=== PATIENT | female | born 1950 | race African-American/Black ===

== ENCOUNTER → 2020-09-05 | Outpatient (CLI) | payer MEDICARE ==
--- NOTE | 2020-09-05 17:00 | CARD ---
MR#: [id number] Date of Study: 09/05/2020 Ordering Physician: KIRK ANTONY, Referring Physician: KIRK ANTONY, Tech: Mahnaz Gaylecliffordpina, [facility] APPROVED REPORT EXAM: Two-dimensional and M-mode echocardiogram with Doppler and color Doppler. Other Information Quality : AverageHR: 78bpm Technically limited study due to body habitus. INDICATION Murmur RISK FACTORS Hypertension 2D DIMENSIONS RVDd3.6 (2.9-3.5cm)Left Atrium(2D)3.3 (1.6-4.0cm) IVSd0.9 (0.7-1.1cm)Aortic Root(2D)2.8 (2.0-3.7cm) LVDd4.2 (3.9-5.9cm)LVOT Diameter2.0 (1.8-2.4cm) PWd0.8 (0.7-1.1cm)LVDs2.3 (2.5-4.0cm) FS (%) 45.8 %SV61.3 ml LVEF(%)77.5 (>50%) Aortic Valve AoV Peak Abraham.262.6cm/sAoV VTI52.9cm AO Peak GR.27.6mmHgLVOT VTI 30.06cm AO Mean GR.15mmHgAI P 1/2 [id number] Mitral Valve MV E Ezqxoosl29.9cm/sMV DECEL [id number] MV A Uzaplsgz74.2cm/sE/A Ratio0.9 TDI Lateral E' P. V7.59cm/sMedial E' P. V9.98cm/s E/Lateral E'9.3E/Medial E'7.1 Tricuspid Valve TR P. Omxqkoup759hu/sRAP PTAYXVIM1ugJq TR Peak Gr.60drIdOLMZ08wvSt Pulmonary Vein S1 Llshmogs56.8cm/sS2 Mwqvfkou37.69cm/s D2 Uhfwgckl48.7cm/s LEFT VENTRICLE The left ventricle is normal size. There is normal left ventricular wall thickness. The left ventricu lar systolic function is normal and the ejection fraction is within normal range. The Ejection Fracti on is 60-65%. There is normal LV segmental wall motion. Tissue Doppler imaging reveals mild left vent ricular diastolic dysfunction. RIGHT VENTRICLE The right ventricle is mildly dilated. The right ventricle is mildly hypertrophied. The right ventric ular systolic function is normal. ATRIA The left atrium size is normal. The right atrium size is normal. The interatrial septum is intact wit h no evidence for an atrial septal defect or patent foramen ovale as noted on 2-D or Doppler imaging. AORTIC VALVE The aortic valve is calcified with restricted leaflet motion. Doppler and Color Flow revealed trace a ortic regurgitation. There is no significant aortic valvular stenosis. Calculated aortic valve area i s 1.86 cm2 with maximum pressure gradient of 31 mmHg and mean pressure gradient of 18 mmHg. MITRAL VALVE The mitral valve is normal in structure and function. There is no evidence of mitral valve prolapse. There is no mitral valve stenosis. Doppler and Color-flow revealed trace mitral regurgitation. TRICUSPID VALVE The tricuspid valve is normal in structure and function. Doppler and Color Flow revealed trace tricus pid regurgitation with an estimated PAP of 41 mmHg. There is no tricuspid valve stenosis. PULMONIC VALVE The pulmonic valve is not well visualized. Doppler and Color Flow revealed no pulmonic valvular regur gitation. There is no pulmonic valvular stenosis. GREAT VESSELS The aortic root is normal in size. The IVC is normal in size and collapses >50% with inspiration. PERICARDIAL EFFUSION There is no evidence of significant pericardial effusion. Critical Notification Critical Value: No <Conclusion> The left ventricular systolic function is normal and the ejection fraction is within normal range. Th e Ejection Fraction is 60-65%. There is normal LV segmental wall motion. There is no significant aortic valvular stenosis. Calculated aortic valve area is 1.86 cm2 with maxim um pressure gradient of 31 mmHg and mean pressure gradient of 18 mmHg. Doppler and Color Flow revealed trace tricuspid regurgitation with an estimated PAP of 41 mmHg. Signed by : Omid Berrios, Electronically Approved : 09/05/2020 17:00:34
== END ==
LOC: ECHO 13:54
PROVIDERS: ATTEND Internal Medicine
DX: I35.1 Nonrheumatic aortic (valve) insufficiency (principal); I10 Essential (primary) hypertension
CPT/HCPCS: 93306

== ENCOUNTER 2020-11-13 14:37 | Emergency (ER) | payer MEDICARE ==
[~2020-11-13] VITALS: Ht 165.1 cm; Wt 75.9 kg
[2020-11-13 16:00] VITALS: BP 138/82
--- NOTE | 2020-11-13 17:39 | RAD ---
EXAMINATION: CT head and cervical spine without IV contrast INDICATION: Pain, numbness to hand COMPARISON: None TECHNIQUE: Spiral acquisition of contiguous images from the skull base to the vertex were obtained. C T of the cervical spine was obtained using contiguous spiral imaging from the skull base to the upper thoracic level. Sagittal and coronal 2D reformatted series were provided by the technologist. Soft t issue and bone window algorithms were reviewed. Exposure: One or more of the following individualized dose reduction techniques were utilized for thi s examination: 1. Automated exposure control 2. Adjustment of the mA and/or kV according to patient size 3. Use of iterative reconstruction technique. FINDINGS: CT HEAD: The ventricles are normal in size. Neither mass, midline shift, intracranial hemorrhage, acute/subacu te ischemic changes, nor extraaxial fluid collections are seen. The brain parenchyma is normal in vivian earance. The paranasal sinuses, mastoid air cells, and middle ears are clear. The orbital contents ap pear within normal limits. CT CERVICAL SPINE: Anatomic alignment of the cervical spine is maintained. Grade 1 anterolisthesis of C7 over T1. Neithe r fracture, subluxation, nor traumatic spondylolisthesis is seen. The vertebral body heights are pres erved. There is no evidence of a large intraspinal hematoma. The prevertebral and paravertebral soft tissues are within normal limits. Visualized lung apices and soft tissue neck are unremarkable. Severe multilevel changes with disc space narrowing, endplate erosion and anterior and posterior oste ophytes. Multilevel lateral facet and uncovertebral arthropathy. No significant canal stenosis. Diffu se disc bulge at C4-5 with severe right neural foraminal narrowing. Severe left and moderate right ne uroforaminal narrowing at C5-6 and C6-7. IMPRESSION: CT HEAD: No evidence of acute intracranial abnormality. CT CERVICAL SPINE: 1. No evidence of fracture or traumatic spondylolisthesis of the cervical spine. 2. Severe multilevel degenerative changes, worst at C4-5, C5-6 and C6-7. Electronically signed by: Yana Valdivia MD (11/13/2020 5:37 PM) [id number]
--- NOTE | 2020-11-13 18:36 | PHYS DOC ---
Past Medical History Past Medical History: Hypertension, Hypothyroid (JERROD MARKS Kim FRIT COATER) Past Surgical History: Other Additional Past Surgical Histo: THYROIDECTOMY (JERROD MARKS Kim FRIT COATER) Smoking Status: Never Smoker Alcohol Use: Occasionally (JERROD MARKS Kim FRIT COATER) General Adult EDM: Chief Complaint: MUSCLE SPASM/CRAMP HPI: HPI: Patient is a 70 year old female with a history of hypertension who presents to the ED today complaining of muscle spasms and tingling to bilateral hands, symptoms began 2 days ago, symptoms are worse while sleeping. Patient states she believes she slept wrong 2 days ago. Patient denies any injuries. She states she has taken hydrocodone from a friend which relieved her symptoms. (JERROD MARKS Kim FRIT COATER) Review of Systems: Review of Systems: Constitutional: Denies fever or chills. [] Eyes: Denies change in visual acuity. [] HENT: Denies nasal congestion or sore throat. [] Respiratory: Denies cough or shortness of breath. [] Cardiovascular: Denies chest pain or edema. [] GI: Denies abdominal pain, nausea, vomiting, bloody stools or diarrhea. [] : Denies dysuria. [] Musculoskeletal: Reports bilateral upper extremity spasms, tingling, slight neck pain Integument: Denies rash. [] Neurologic: Denies headache, focal weakness or sensory changes. [] Psychiatric: Denies depression or anxiety. [] (JUDITHJERROD Lewis FRIT COATER) Heart Score: C/O Chest Pain: N/A Risk Factors: Risk Factors: DM, Current or recent (<one month) smoker, HTN, HLP, family history of CAD, obesity. Risk Scores: Score 0 - 3: 2.5% MACE over next 6 weeks - Discharge Home Score 4 - 6: 20.3% MACE over next 6 weeks - Admit for Clinical Observation Score 7 - 10: 72.7% MACE over next 6 weeks - Early Invasive Strategies (JUDITHJERROD Lewis FRIT COATER) Physical Exam: PE: Constitutional: Well developed, well nourished, no acute distress, non-toxic appearance. [] HENT: Normocephalic, atraumatic, bilateral external ears normal, oropharynx moist, no oral exudates, nose normal. [] Eyes: PERRLA, EOMI, conjunctiva normal, no discharge. [] Neck: Normal range of motion, no tenderness, supple, no stridor. [] Cardiovascular:Heart rate regular rhythm, no murmur [] Lungs & Thorax: Bilateral breath sounds clear to auscultation [] Abdomen: Bowel sounds normal, soft, no tenderness, no masses, no pulsatile masses. [] Skin: Warm, dry, no erythema, no rash. [] Back: No tenderness, no CVA tenderness. [] Extremities: No tenderness, no cyanosis, no clubbing, ROM intact, no edema. [] 5/5 strength to bilateral upper extremities. Neurologic: Alert and oriented X 3, normal motor function, normal sensory function, no focal deficits noted. Cranial nerves II through XII intact Psychologic: Affect normal, judgement normal, mood normal. [] (JERROD MARKS FRIT COATER) Current Patient Data: Vital Signs: Vital Signs Date Time Temp Pulse Resp B/P (MAP) Pulse Ox O2 Delivery O2 Flow Rate FiO2 11/13/20 16:00 98.8 73 16 138/82 (100) 98 Room Air 98.8 (JERROD MARKS FRIT COATER) EKG: EKG: [] (JERROD MARKS FRIT COATER) Radiology/Procedures: Radiology/Procedures: []PROCEDURE: CT HEAD AND CERVICAL SPINE WO EXAMINATION: CT head and cervical spine without IV contrast INDICATION: Pain, numbness to hand COMPARISON: None TECHNIQUE: Spiral acquisition of contiguous images from the skull base to the vertex were obtained. CT of the cervical spine was obtained using contiguous spiral imaging from the skull base to the upper thoracic level. Sagittal and coronal 2D reformatted series were provided by the technologist. Soft tissue and bone window algorithms were reviewed. Exposure: One or more of the following individualized dose reduction techniques were utilized for this examination: 1. Automated exposure control 2. Adjustment of the mA and/or kV according to patient size 3. Use of iterative reconstruction technique. FINDINGS: CT HEAD: The ventricles are normal in size. Neither mass, midline shift, intracranial hemorrhage, acute/subacute ischemic changes, nor extraaxial fluid collections are seen. The brain parenchyma is normal in appearance. The paranasal sinuses, mastoid air cells, and middle ears are clear. The orbital contents appear within normal limits. CT CERVICAL SPINE: Anatomic alignment of the cervical spine is maintained. Grade 1 anterolisthesis of C7 over T1. Neither fracture, subluxation, nor traumatic spondylolisthesis is seen. The vertebral body heights are preserved. There is no evidence of a large intraspinal hematoma. The prevertebral and paravertebral soft tissues are within normal limits. Visualized lung apices and soft tissue neck are unremarkable. Severe multilevel changes with disc space narrowing, endplate erosion and anterior and posterior osteophytes. Multilevel lateral facet and uncovertebral arthropathy. No significant canal stenosis. Diffuse disc bulge at C4-5 with severe right neural foraminal narrowing. Severe left and moderate right neuroforaminal narrowing at C5-6 and C6-7. IMPRESSION: CT HEAD: No evidence of acute intracranial abnormality. CT CERVICAL SPINE: 1. No evidence of fracture or traumatic spondylolisthesis of the cervical spine. 2. Severe multilevel degenerative changes, worst at C4-5, C5-6 and C6-7. Electronically signed by: Shanae Valdivia MD (11/13/2020 5:37 PM) [id number] DICTATED and SIGNED BY: SHANAE VALDIVIA MD DATE: 11/13/20 [id number] 0 Right (JERROD MARKS APRN) Course & Med Decision Making: Course & Med Decision Making Pertinent Labs and Imaging studies reviewed. (See chart for details) This is a 7-year-old female patient presented to the ED today complaining of spasms to her neck and tingling sensation to her fingers. The symptoms began 2 days ago after what she believes was sleeping wrong. CT of the head and cervical spine was negative for any acute findings, noted for DJD. Patient likely has radiculopathy. Provided neurosurgeon for follow-up. She has a PCP. Return precautions provided. (JERROD MARKS APRN) Course & Med Decision Making The chart was reviewed. MLP assessed and treated patient independently I was available for consult.. Agree with the plan of care. (VEE GROVE I DO) Trev Disclaimer: Trev Disclaimer: This electronic medical record was generated, in whole or in part, using a voice recognition dictation system. (JERROD MARKS APRN) Departure Departure Impression: Primary Impression: Muscle spasm Additional Impressions: DJD (degenerative joint disease) of cervical spine Qualified Codes: M47.812 - Spondylosis without myelopathy or radiculopathy, cervical region Cervical radiculopathy Disposition: 01 HOME / SELF CARE / HOMELESS Condition: STABLE Referrals: KIRK ANTONY MD (PCP) BANDAR DUMONT MD follow up with your doctor in one week Patient Instructions: Arthritis, Degenerative-Brief, Cervical Radiculopathy Additional Instructions: You were evaluated in the emergency room, your CT of the neck was noted for arthritis in your neck. Try and get a heating pad and apply to your neck. Take the prescribed medications as ordered. Follow-up with your doctor in 1 week Scripts Hydrocodone Bit/Acetaminophen (HYDROCODONE-APAP 5-325 ) 1 Tab Tablet 1 TAB PO PRN Q6HRS PRN for PAIN, #8 TAB 0 Refills Prov: JERROD MARKS APRN 11/13/20 Cyclobenzaprine Hcl (CYCLOBENZAPRINE HCL) 10 Mg Tablet 1 TAB PO TID, #30 TAB Prov: JERROD MARKS APRN 11/13/20 JERROD MARKS APRN November 13, 2020 18:36 VEE GROVE I DO November 15, 2020 06:08
[2020-11-13] MEDS ORDERED: CYCL10TA2 PO (18:47)
[2020-11-13] MEDS ORDERED: HYDR-2761 PO (18:47)
== END 2020-11-13 19:00 | disposition home or self-care (01) ==
LOC: ER 14:37
DX: M47.22 Other spondylosis with radiculopathy, cervical region (principal); I10 Essential (primary) hypertension; E03.9 Hypothyroidism, unspecified
CPT/HCPCS: 70450; 72125; 99284-25